=== PATIENT | female | born 1945 | race Caucasian/White ===

== ENCOUNTER → 2017-12-31 17:35 | Outpatient (CLI) | payer MEDICARE, SELFPAY ==
--- NOTE | 2017-12-31 17:35 | DT_ITS ---
This patient was seen during an EMR downtime December 29, 2017 - January 05, 2018. This patient may have a combination of paper and electronic documentation or all paper documentation. All documentation is viewable within the e-chart portion of [employer] for each patient visit.
--- NOTE | 2017-12-31 17:46 | RAD_ITS ---
STUDY: X-RAY - LUMBAR SPINE REASON FOR EXAM: Female, 72 years old. Neck pain arthritis TECHNIQUE: 5 view(s) of the lumbar spine were obtained. COMPARISON: None FINDINGS: Normal lumbar lordosis. There is scoliosis. There is a normal alignment of the vertebrae. Residual contrast visualized in the kidneys. Stool throughout the colon. There is multilevel endplate spondylosis of the lumbar vertebrae. There is multi-level degenerative disc disease with multi-level disc space narrowing. There are atherosclerotic vascular calcifications. The soft tissue structures are unremarkable. RAD/L/S Spine Min 4 Views IMPRESSION: Degenerative changes of the spine, as detailed above. Constipation Electronically Signed: Familia Soto MD at 18:25 EDT , Service support ,
--- NOTE | 2018-01-05 08:44 | CT_ITS ---
STUDY: CT BRAIN WITH AND WITHOUT CONTRAST REASON FOR EXAM: Female, 72 years old. Memory loss RADIATION DOSAGE (If Supplied By Facility): CTDIvol = ( 12.19 ) mGy, DLP = ( 219.42 ) mGycm TECHNIQUE: Transaxial CT imaging of the brain was performed pre and post contrast administration. The examination was performed with intravenous administration of 100 ml of Isovue 300 contrast material. Individualized dose optimization techniques were used for this CT. COMPARISON: None. FINDINGS: Please note that due to technical difficulties with the CT scanner, the superior half of the images are missing on the postcontrast exam. There is no acute bleed or infarct. There are mild chronic ischemic changes. There is no abnormal enhancement following contrast administration in the visualized portions of the brain. There are no intracranial masses identified. The ventricles are normal in configuration. There is no hydrocephalus. The visualized paranasal sinuses are clear. The mastoid air cells are well aerated. There is no skull fracture. CT/Brain/Head W/WO Contrast IMPRESSION: Please note that due to technical difficulties with the CT scanner, the superior half of the images are missing on the postcontrast exam. No acute intracranial abnormality. Mild chronic ischemic changes. No abnormal enhancement or mass visualized on the limited postcontrast images. Electronically Signed: Julius Edmonds, at 16:37 EDT Tel , Service support ,
[2018-01-11 14:55] LABS: CREATININE FINGERSTICK 0.67 mg/dL (0.55-1.02)
== END ==
PROVIDERS: Family Provider Internal Medicine; PCP Internal Medicine; Visit Provider Internal Medicine
DX: R41.3 Other amnesia (principal)
CPT/HCPCS: 70470; 72110; Q9967

== ENCOUNTER 2018-10-31 14:05 | Emergency (ER) | payer MEDICARE, SELFPAY ==
[2018-10-31 14:07] VITALS: BP 156/70; PULSE 87; RESP 18; TEMP 36.7; O2SAT 100; BMI 22.0
--- NOTE | 2018-10-31 14:39 | ED.RN ---
LEFT MESSAGE FOR PT'S DAUGHTER GENI TO CALL ED.
--- NOTE | 2018-10-31 14:58 | RAD_ITS ---
STUDY: X-RAY CHEST REASON FOR EXAM: Female, 73 years old. Chest pain TECHNIQUE: AP COMPARISON: None. FINDINGS: EKG leads project over the chest. The lungs are clear and expanded. There is no demonstrated pleural abnormality. Normal size heart. Normal mediastinum and andrew. Normal visualized pulmonary arteries. There is atherosclerotic calcification of the aortic arch with tortuosity. Normal visualized thoracic spine. Normal visualized ribs, clavicles, and shoulders. There is no demonstrated abnormality of the visualized soft tissue structures of the upper abdomen. RAD/Chest 1 View (Portable) IMPRESSION: Nonacute portable x-ray examination of the chest. Electronically Signed: True Saavedra MD at 15:33 EDT , Service support ,
--- NOTE | 2018-10-31 14:58 | EKG12_ITS ---
Test Reason : Blood Pressure : / mmHG Vent. Rate : 080 BPM Atrial Rate : 080 BPM P-R Int : 148 ms QRS Dur : 066 ms QT Int : 356 ms P-R-T Axes : 068 023 050 degrees QTc Int : 410 ms Normal sinus rhythm Septal infarct , age undetermined Abnormal ECG Confirmed by OFE ARENAS, CHARISMA ([id number]), film and video editor GISELA PEGUERO ([id number]) on 11/03/2018 7:51:36 AM Referred By: SONG/ANAHY Confirmed By:CHARISMA THAKUR MD
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
[2018-10-31 15:37] VITALS: BP 156/66; PULSE 84; RESP 18; O2SAT 96
[2018-10-31] MEDS: 0.9% Normal Saline 1,000 ML 150 ML IV (15:38)
[2018-10-31] MEDS: Morphine 4 MG/ML Syringe IV (15:38)
[2018-10-31] MEDS: Ondansetron 4 MG/2 ML Vial IV (15:38)
[2018-10-31 16:04] LABS: Absolute Lymphocyte Count 1.25 X10^3/ul (0.83-4.51); Absolute Neutrophil Count 4.7 X10^3/uL (2.0-7.7); Basophil# 0.02 X10^3/uL; Basophil% 0.3 % (0-1); Eosinophil# 0.06 X10^3/uL; Eosinophils% 0.9 % (0-5); Hematocrit 38.2 % (37-47); Hemoglobin 12.8 g/dl (12.0-15.0); Lymphocyte # 1.25 X10^3/ul (4.0); Lymphocyte % 19.1 % (19-41); Mean Corp Hgb Conc 33.5 g/gl (32-36); Mean Corpuscular Hgb 31.3 pg (27.0-32.0); Mean Corpuscular Volume 93.4 fL (81-99); Mean Platelet Vol. 9.9 fl (6.2-12.0); Monocyte# 0.44 X10^3/uL; Monocyte% 6.7 % (0-10); Neutrophil # 4.71 X10^3/uL (2.7-7.7); Neutrophil % 72.2 % (47-70); Platelet Count 193 K/mm3 (150-450); RBC Distribution Width CV 12.5 % (11.6-14.6); RBC Distribution Width SD 41.9 fl (35.1-43.9); Red Blood Count 4.09 M/mm3 (4.2-5.4); White Blood Count 6.5 K/mm3 (4.4-11.0)
[2018-10-31 16:05] LABS: POSITIVE COUNT NO; POSITIVE DIFFERENTIAL NO; POSITIVE MORPHOLOGY NO
[2018-10-31 16:20] LABS: Anion Gap 6 (5-15); BUN 20 mg/dL (7-18); BUN/Creat Ratio 33.1 RATIO (10-20); Calcium,Total 8.6 mg/dL (8.5-10.1); Chloride 105 mmol/L (98-107); EST Glomerular Filtration Rate 103 mL/min (>60); Est Glom Filt Rate - Afr Amer 125 mL/min (>60); Estimated Creatinine Clearance 43.27 ml/min; Glucose 114 mg/dL (74-106); Potassium 3.6 mmol/L (3.5-5.1); Sodium Level 139 mmol/L (136-145)
[2018-10-31 17:12] VITALS: BP 154/72; PULSE 85; RESP 17; O2SAT 97
--- NOTE | 2018-10-31 17:59 | ED.DEP ---
ED Disposition - Plan for ED Patient: Instructions: ED Sprain Strain Neck Referrals: Deysi Estrada DO [Primary Care Provider] -
[2018-10-31 18:55] VITALS: BP 144/77; PULSE 83; RESP 16; O2SAT 100
--- NOTE | 2018-10-31 18:56 | ED.RN ---
DYLLAN AND NAI IRVING PRESENT AND REVIEWED RESULTS AND DC INSTRUCTIONS WITH THEM VERBALIZED UNDERSTANDING. NO NEEDS VOICED.
== END 2018-10-31 18:57 | disposition home or self-care (01) ==
PROVIDERS: Emergency Provider Emergency Medicine; Family Provider Internal Medicine; PCP Internal Medicine
DX: Z04.1 Encounter for examination and observation following transport accident (principal); M54.2 Cervicalgia; R41.3 Other amnesia
CPT/HCPCS: 70450; 71045; 72125; 80048; 84484; 85025; 93005; 96361; 96374; 96375; 99285; J7030; A4216; J2405

== ENCOUNTER 2018-11-02 12:39 | Emergency (ER) | payer MEDICARE, SELFPAY ==
[2018-11-02 12:41] VITALS: BP 132/69; PULSE 80; RESP 17; TEMP 37; O2SAT 95; BMI 19.5
--- NOTE | 2018-11-02 12:51 | CT_ITS ---
STUDY: CT BRAIN WITHOUT CONTRAST REASON FOR EXAM: Female, 73 years old. 2 day history of nausea and vomiting. RADIATION DOSAGE (If Supplied By Facility): CTDIvol = ( 60.81 ) mGy, DLP = ( 1085.11 ) mGycm TECHNIQUE: Transaxial CT imaging of the brain was performed without administration of intravenous contrast material. Individualized dose optimization techniques were used for this CT. COMPARISON: Comparison is made with prior study dated October 31, 2018. FINDINGS: Normal soft tissue structures. Normal calvarium. There is mild cerebral atrophy with widening of the extra-axial spaces and ventricular dilatation. There are areas of decreased attenuation within the white matter tracts of the supratentorial brain, consistent with microvascular disease changes. Stable focal area of decreased attenuation in the posterior left parietal lobe. There are small punctate calcifications of the basal ganglia which are seen in the aging brain as a normal variant. Normal brainstem. Normal cerebellum. There is no intracranial hemorrhage. There are no findings of an acute ischemic infarction. Normal visualized paranasal sinuses. CT/Brain/Head without Contrast IMPRESSION: Chronic involutional changes of the brain. Electronically Signed: Mark Michelle, at 13:49 EDT , Service support ,
--- NOTE | 2018-11-02 12:51 | EKG12_ITS ---
Test Reason : N AND VOMIT Blood Pressure : / mmHG Vent. Rate : 077 BPM Atrial Rate : 077 BPM P-R Int : 132 ms QRS Dur : 076 ms QT Int : 396 ms P-R-T Axes : 077 049 040 degrees QTc Int : 448 ms Normal sinus rhythm Possible Left atrial enlargement Nonspecific ST abnormality Abnormal ECG Confirmed by OPAL ARENAS, MERRILL ([id number]), mender knit goods GISELA PEGUERO ([id number]) on 11/04/2018 1:18:17 PM Referred By: VALENCIA Confirmed By:MERRILL JOSEPH MD
[2018-11-02 13:03] VITALS: BP 122/69; PULSE 81; RESP 17; O2SAT 98
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
--- NOTE | 2018-11-02 13:24 | RAD_ITS ---
STUDY: X-RAY CHEST REASON FOR EXAM: Female, 73 years old. 2 day history of nausea and vomiting. TECHNIQUE: PA and lateral views of the chest. COMPARISON: Comparison is made with prior study dated October 31, 2018. FINDINGS: EKG electrodes are seen. Hyperinflation. There is no demonstrated pleural abnormality. Normal size heart. Normal mediastinum and andrew. Normal visualized pulmonary arteries. There is atherosclerotic calcification of the aortic arch with tortuosity. There is demineralization of the osseous structures. Normal visualized ribs, clavicles, and shoulders. There is no demonstrated abnormality of the visualized soft tissue structures of the upper abdomen. RAD/Chest PA and Lateral IMPRESSION: Hyperinflation. Electronically Signed: Mark Michelle, at 13:41 EDT , Service support ,
[2018-11-02 13:25] LABS: Absolute Lymphocyte Count 0.87 X10^3/ul (0.83-4.51); Absolute Neutrophil Count 8.2 X10^3/uL (2.0-7.7); Hematocrit 38.7 % (37-47); Lymphocyte # 0.87 X10^3/ul (4.0); Mean Corp Hgb Conc 33.6 g/gl (32-36); Mean Corpuscular Hgb 31.2 pg (27.0-32.0); Mean Corpuscular Volume 92.8 fL (81-99); Mean Platelet Vol. 9.7 fl (6.2-12.0); Monocyte# 0.49 X10^3/uL; Monocyte% 5.1 % (0-10); Neutrophil # 8.23 X10^3/uL (2.7-7.7); Neutrophil % 85.6 % (47-70); Platelet Count 191 K/mm3 (150-450); RBC Distribution Width CV 12.8 % (11.6-14.6); RBC Distribution Width SD 43.2 fl (35.1-43.9); Red Blood Count 4.17 M/mm3 (4.2-5.4); White Blood Count 9.6 K/mm3 (4.4-11.0)
[2018-11-02 13:35] LABS: ALB/GLOB Ratio 1.2 RATIO (0.9-2.4); AST(SGOT) 39 U/L (15-37); Alanine Aminotransfer ALT/SGPT 39 U/L (13-56); Albumin, Serum 4.4 g/dL (3.2-5.0); Alkaline Phosphatase 77 U/L (45-117); Anion Gap 7 (5-15); BUN 16 mg/dL (7-18); BUN/Creat Ratio 22.2 RATIO (10-20); Calcium,Total 9.4 mg/dL (8.5-10.1); Chloride 100 mmol/L (98-107); Creatinine, Serum 0.72 mg/dL (0.55-1.02); EST Glomerular Filtration Rate 84 mL/min (>60); Est Glom Filt Rate - Afr Amer 102 mL/min (>60); Estimated Creatinine Clearance 39.47 ml/min; Globulin 3.8 g/dL (2.2-4.2); Glucose 134 mg/dL (74-106); Potassium 3.3 mmol/L (3.5-5.1); Protein, Total 8.2 g/dL (6.4-8.2); Sodium Level 136 mmol/L (136-145)
[2018-11-02 13:39] LABS: POSITIVE COUNT NO; POSITIVE DIFFERENTIAL NO; POSITIVE MORPHOLOGY NO
[2018-11-02 14:26] LABS: Bacteria 0 SEEN /hpf (None Seen); Mucous, Urine 0 SEEN /hpf (<or=2+); Squamous Epithelial Cells - UA 0 SEEN /hpf (5-10); White Blood Cells 0 SEEN /hpf (0-5)
[2018-11-02 14:27] LABS: Color, Urine Yellow (Yellow); Glucose, Dipstick Normal (Normal); Ketone-Dipstick 50 mg/dl (Negative); Leukocyte Esterase-Dipstick Negative /ul (Negative); Nitrite-Dipstick Negative (Negative); Occult Blood-Urine 10 /ul (Negative); Protein-Dipstick 15 mg/dl (Negative); Urine Bilirubin Dipstick Negative (Negative); Urine Clarity Clear (Clear); Urine Urobilinogen Normal (Normal)
[2018-11-02 14:42] LABS: Red Blood Cells-Urine 0-5 SEEN /hpf (0-5)
[2018-11-02] MEDS: Ondansetron 4 MG/2 ML Vial IV (14:49)
[2018-11-02 15:25] VITALS: BP 137/76; PULSE 69; RESP 17; O2SAT 98
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
[2018-11-02 15:44] VITALS: BP 143/90; PULSE 72; RESP 14; O2SAT 98
== END 2018-11-02 15:46 | disposition home or self-care (01) ==
LOC: ED 13:56
PROVIDERS: Emergency Provider Emergency Medicine; Family Provider Internal Medicine; PCP Internal Medicine
DX: S06.0X9S Concussion with loss of consciousness of unspecified duration, sequela (principal); V49.60XS Unspecified car occupant injured in collision with unspecified motor vehicles in traffic accident, sequela
CPT/HCPCS: 70450; 71046; 80053; 81001; 85025; 93005; 96374; 99284; A4216; J2405